=== PATIENT | male | born 1960 | race Caucasian/White ===

== ENCOUNTER → 2021-01-20 14:35 | Outpatient (BNVA) | payer BC, SELFPAY | PROVIDERS: PCP Internal Medicine; Visit Provider Nurse Practitioner Family ==

== ENCOUNTER 2021-01-21 12:31 | Outpatient (REF) | payer BC, SELFPAY ==
--- NOTE | ~2021-01-21 | XR_ITS ---
EXAMINATION: XR LUMBOSACRAL SPINE CLINICAL INFORMATION: Spondylosis with myelopathy or radiculopathy. COMPARISON: None TECHNIQUE: Three views of the lumbosacral spine. FINDINGS: There is normal lumbar lordosis. The vertebral heights, alignment and disc heights are normal. There is mild ventral spondylosis L3-L4 disc level. No visible acute fracture, dislocation or lytic process seen. The soft tissues are normal. SI joints are symmetrical. XR/XR lumbar spine 2-3V IMPRESSION: Mild ventral spondylosis L3-L4 disc level. No visible acute fracture or dislocation seen.
== END 2021-01-21 12:32 | disposition home or self-care (01) ==
LOC: HO.XRAY 12:31
PROVIDERS: Visit Provider Nurse Practitioner Family
DX: M47.816 Spondylosis without myelopathy or radiculopathy, lumbar region (principal); G89.4 Chronic pain syndrome
CPT/HCPCS: 72100

== ENCOUNTER → 2021-10-01 15:44 | Outpatient (BNVA) | payer BC, SELFPAY | PROVIDERS: Visit Provider Nurse Practitioner Family ==